=== PATIENT | female | born 1965 ===

== ENCOUNTER 2024-11-16 05:40 | Day surgery (SDC) | payer OTHER ==
[2024-11-10 11:54] LABS: BASO % 0.5 % (0.1-1.2); EOS # 0.32 (0.04-0.54); EOS % 4.3 % (0.7-7.0); HEMATOCRIT 39.5 % (34.1-44.9); HEMOGLOBIN 13.3 g/dL (11.2-15.7); LYMPH # 2.19 (1.18-3.74); LYMPH % 29.2 % (19.3-53.1); MONO # 0.55 (0.24-0.82); MONO % 7.3 % (4.7-12.5); NEUT # 4.36 (1.56-6.13); NEUT % 58.3 % (34.0-71.1); PLATELET COUNT 359 K/uL (163-369); RED BLOOD COUNT 4.75 M/uL (3.93-5.22); RED CELL DISTRIBUTION WIDTH 14.1 % (11.6-14.4)
[2024-11-10 12:19] LABS: INR 1.01; PARTIAL THROMBOPLASTIN TIME 28.4 SECONDS (22.0-34.0)
[2024-11-10 12:26] LABS: ALBUMIN 3.7 gm/dL (3.4-5.0); BILIRUBIN TOTAL 0.65 mg/dL (0.3-1.2); CALCIUM 9.5 mg/dL (8.5-10.1); CREATININE SERUM 0.71 mg/dL (0.55-1.02); GFR 84.26; GLOBULINA 4.6 G/DL (2.4-3.5); POTASSIUM 4.17 mEq/L (3.5-5.1); TOTAL PROTEIN 8.3 gm/dL (6.4-8.2)
[2024-11-10 14:06] VITALS: BP 121/80
[~2024-11-16] VITALS: Ht 154.9 cm; Wt 86.6 kg
[2024-11-16] MEDS ORDERED: POVIDONE-IODINE 118 ML BOTT TOP ONE (07:10)
[2024-11-16] MEDS ORDERED: CHLORHEXIDINE GLUCONATE 120 ML BOTTLE TOP ONE ×2 (07:52→08:00)
== END 2024-11-16 13:00 | disposition home or self-care (01) ==
LOC: CIR.AMB 05:40
PROVIDERS: ATTEND Obstetrics & Gynecology Maternal & Fetal Medicine
DX: N84.0 Polyp of corpus uteri (principal); N72 Inflammatory disease of cervix uteri